=== PATIENT | female | born 1960 ===

== ENCOUNTER 2018-09-25 16:08 | Outpatient (CLI) | payer OTHER ==
--- NOTE | 2018-09-29 09:10 | Mammography Report ---
BILATERAL DIGITAL SCREENING MAMMOGRAM with CAD: 09/25/18 16:08:00 CLINICAL: Routine screening. COMPARISON: None available. FINDINGS: The breasts are almost entirely fatty.No mass, architectural distortion or suspicious calcifications. IMPRESSION: No mammographic evidence of malignancy. BI-RADS CATEGORY: 1 -- Negative RECOMMENDATION: Routine mammographic screening in one year. COMMENT: Patient follow-up letters are generated by our [employer] application.
== END 2018-09-25 16:09 | disposition home or self-care (01) ==
LOC: SPVWC 16:08
PROVIDERS: ATTEND Internal Medicine
DX: Z12.31 Encounter for screening mammogram for malignant neoplasm of breast (principal)
CPT/HCPCS: 77067

== ENCOUNTER 2019-02-23 09:24 | Outpatient (CLI) | payer OTHER ==
[2019-02-23 10:32] LABS: Chol/HDL Ratio 3.94 %
== END 2019-02-23 09:25 | disposition home or self-care (01) ==
LOC: LAB 09:24
PROVIDERS: ATTEND Internal Medicine
DX: E78.2 Mixed hyperlipidemia (principal); R73.03 Prediabetes
CPT/HCPCS: 36415; 80061; 83036

== ENCOUNTER 2019-06-03 10:28 | Outpatient (CLI) | payer OTHER ==
[2019-06-03 12:36] LABS: Basophils % (Auto) 0.7 % (0.0-1.8); Eosinophils # (Auto) 0.2 K/mm3 (0.0-0.4); Eosinophils % (Auto) 3.8 % (0.0-4.3); Hematocrit 41.6 % (30.3-42.9); Lymphocytes # (Auto) 1.7 K/mm3 (1.2-5.4); Mean Corpuscular HGB Conc 34 % (30-34); Mean Corpuscular Volume 91 fl (79-97); Monocytes # (Auto) 0.4 K/mm3 (0.0-0.8); Monocytes % (Auto) 7.5 % (0.0-7.3); Platelet Count 229 K/mm3 (140-440); Red Cell Distribution Width 12.9 % (13.2-15.2)
[2019-06-03 12:38] LABS: Bilirubin,Urine NEG (Negative); Blood,Urine NEG (Negative); Color,Urine Yellow (Yellow); Mucus,Urine FEW /HPF; Protein,Urine <15 mg/dL mg/dL (Negative); Urobilinogen,Urine < 2.0 mg/dL (<2.0)
[2019-06-03 12:45] LABS: WBC,Urine < 1.0 /HPF (0.0-6.0)
[2019-06-03 12:46] LABS: Alanine Aminotransferase 27 units/L (7-56); Albumin 4.4 g/dL (3.9-5); BUN/Creatinine Ratio 28; Blood Urea Nitrogen 11 mg/dL (7-17); Calcium 9.4 mg/dL (8.4-10.2); Chol/HDL Ratio 3.69 %; HDL Cholesterol 55 mg/dL (40-59); Hemolysis Index 6; LDL Cholesterol,Direct 146 mg/dL (50-130)
[2019-06-07 12:09] LABS: Vitamin D, 25-OH, D2 <4 ng/mL
== END 2019-06-03 10:29 | disposition home or self-care (01) ==
LOC: LAB 10:28
PROVIDERS: ATTEND Internal Medicine
DX: Z00.00 Encounter for general adult medical examination without abnormal findings (principal); R73.03 Prediabetes; E78.2 Mixed hyperlipidemia; Z13.29 Encounter for screening for other suspected endocrine disorder; Z13.21 Encounter for screening for nutritional disorder
CPT/HCPCS: 36415; 80053; 80061; 81001; 82306; 82607; 83036; 84443; 85025

== ENCOUNTER 2019-10-01 07:18 | Day surgery (SDC) | payer OTHER ==
[~2019-10-01 07:18] MED LIST: SODIUM CHLORIDE 0.9% 1000 ML 1,000 ML IV SCH
[2019-10-01] MEDS ORDERED: LIDOCAINE MPF (2%) 20 MG/1 ML VIAL 5 ML ONE (08:00)
--- NOTE | 2019-10-01 08:02 | Anesthesia Consultation ---
Anesthesia Consult and Med Hx Date of service: 10/01/19 - Airway Anesthetic Teeth Evaluation: Good ROM Head & Neck: Adequate Mental/Hyoid Distance: Adequate Mallampati Class: Class II Intubation Access Assessment: Probably Good - Pre-Operative Health Status ASA Pre-Surgery Classification: ASA2 Proposed Anesthetic Plan: MAC - Gastrointestinal Hx Ulcer: No (diarrhea) Hx Gastroesophageal Reflux Disease: Yes (disphagea)
--- NOTE | 2019-10-01 08:03 | Anesthesia Day of Surgery ---
Anesthesia Day of Surgery - Day of Surgery Patient Examined: Yes Patient H&P Reviewed: Yes Patient is NPO: Yes
[2019-10-01] MEDS ORDERED: propofoL 200 MG/20 ML VIAL IV ONE ×2 (09:13)
--- NOTE | 2019-10-01 09:51 | Procedure Note ---
Date of procedure: 10/01/19 Pre-op diagnosis: Dyspepsia/ Colon Polyp Screening/ Diarrhea Post-op diagnosis: other (Mild to Moderate Erosive Esophagitis/ R/O Eosinophilc Esophagitis/Gastritis/ R/O Microscopic Colitis/R/O Ileitis/ Minor, Internal Hemorrhoid/ No Colon Polyps or Diverticular disease noted) Procedure: EGD with Biopsy/ Colonoscopy with Biopsy Anesthesia: DARSHAN Surgeon: DWAYNE BARBER Estimated blood loss: minimal Pathology: list Specimen disposition: to lab Condition: stable
--- NOTE | 2019-10-01 09:53 | Operative Report ---
INDICATIONS: This is a 59-year-old female who had colonoscopy done as part of colon polyp screening. She also gave complaints of diarrhea and was being checked for possible associated colitis. The procedure was done after getting informed consent with MAC anesthesia. EGD was done prior to the colonoscopy, which showed moderate erosive esophagitis and gastritis. Biopsy was also done to rule out for eosinophilic esophagitis. Initial rectal exam was unremarkable. Instrument was passed through the rectum onto the cecum, which was identified with ileocecal valve and the appendiceal orifice. Visualization was fair to good. The terminal ileum was intubated showed normal mucosa. Biopsy was done to rule out for possible ileitis. Cecum, ascending colon, transverse colon, descending colon, and sigmoid showed normal mucosa. Biopsy was done to rule out for possible microscopic colitis. There is no colon polyps or diverticular disease noted and the rectum showed minor internal hemorrhoid on the retroverted view. There was minimal bleeding associated with the biopsies and no complications associated with the procedure. ASSESSMENT: Colon polyp screening, diarrhea. No colon polyps or diverticula noted. Rule out microscopic colitis, rule out ileitis, minor internal hemorrhoid. PLAN: To encourage the patient to take [id number] antidiarrheal medication as needed. Encouraged the patient to take otiz-trm-csymzzz probiotics. Avoid aspirin and aspirin-related products. The patient will be treated with PPI and baclofen because of the EGD findings of esophagitis and gastritis and will be asked to follow up in the office in 1-2 weeks' time. Further treatment adjustments will be made according to the biopsy findings. JOB# [id number] JAYASHREE/SÁNCHEZ
[2019-10-01 10:05] VITALS: BP 146/73
--- NOTE | 2019-10-01 10:29 | Operative Report ---
PROCEDURE: EGD with biopsy. INDICATIONS: A 59-year-old female who has been complaining of dyspeptic symptoms. EGD was done to assess for the problem. DESCRIPTION OF PROCEDURE: The procedure was done after getting informed consent with MAC anesthesia. Instrument was passed through the hypopharynx into the esophagus, which showed mild to moderate distal erosive esophagitis. Biopsy was done from the distal esophagus as well as the mid esophagus to assess for the severity of erosive esophagitis and rule out for any associated eosinophilic esophagitis. The stomach showed antral gastritis. Pylorus was patent. Duodenum in the first and second portion appeared normal. Biopsy was done from the gastric antrum, gastric body and angular incisura to rule out for H. pylori and atrophic gastritis. There was minimal bleeding associated with the procedure. No complications associated with the procedure. ASSESSMENT: Dyspepsia, mild to moderate erosive esophagitis, rule out eosinophilic esophagitis and gastritis. PLAN: To treat the patient with PPI and possibly baclofen to help with any acid reflux. Avoid aspirin and aspirin-related products. A colonoscopy will be done as part of colon polyp screening because of the patient's complaints of diarrhea. The patient will be asked to follow up in the office in 1-2 weeks' time. The procedure was done in the GI lab with the assistance of the GI lab team, which included MACIEL Emery, león Choi and with the assistance of Anesthesia. JOB# [id number] JAYASHREE/SÁNCHEZ
--- NOTE | 2019-10-01 12:03 | Post Anesthesia Evaluation ---
- Post Anesthesia Evaluation Patient Participated: Yes Airway Patent: Yes Stable Respiratory Function: Yes Nausea/Vomiting: No Temp > 96.8F: Yes Pain Manageable: Yes Adequeate Hydration: Yes Anesthesia Complications: No
[2019-10-01] MEDS ORDERED: WATER FOR IRRIG STERILE 250 ML BOTTLE IR ONE (12:57)
== END 2019-10-01 10:28 | disposition home or self-care (01) ==
LOC: GIO 07:18
DX: R19.7 Diarrhea, unspecified (principal); R10.13 Epigastric pain; K21.0 Gastro-esophageal reflux disease with esophagitis; K29.70 Gastritis, unspecified, without bleeding; K57.30 Diverticulosis of large intestine without perforation or abscess without bleeding; K62.89 Other specified diseases of anus and rectum; K64.8 Other hemorrhoids; Z88.8 Allergy status to other drugs, medicaments and biological substances; Z79.899 Other long term (current) drug therapy; Z90.49 Acquired absence of other specified parts of digestive tract; Z90.710 Acquired absence of both cervix and uterus; Z98.890 Other specified postprocedural states
CPT/HCPCS: 43239; 45380; 88305; 88312; 88341; 88342; J2704; J7030

== ENCOUNTER 2020-03-17 12:44 | Outpatient (CLI) | payer OTHER ==
--- NOTE | 2020-03-20 10:28 | Mammography Report ---
DIGITAL SCREENING MAMMOGRAM WITH CAD, 03/17/2020 CLINICAL INFORMATION / INDICATION: Routine screening mammography. SCREENING MAMMO TECHNIQUE: Digital bilateral 2D mammography was obtained in the craniocaudal and mediolateral obliqu e projections. This examination was interpreted with the benefit of Computer-Aided Detection analysis . COMPARISON: Prior mammogram 09/25/2018 FINDINGS: Breast Density: There are scattered areas of fibroglandular density. No dominant mass, suspicious calcifications, or architectural distortion in either breast. There has been no significant change compared with the prior examination. IMPRESSION: No mammographic evidence of malignancy. Follow up recommendation: Routine yearly BI-RADS Category 1: Negative. A "normal" or negative report should not discourage follow up or biopsy of a clinically significant f inding. A written summary of these findings will be mailed to the patient. The patient will be entered into a mammography reporting system which will generate a reminder letter for the patient's next appointmen t at the appropriate interval. The [employer] recommends yearly mammograms starting at age 40 and continuing as l emerita as a woman is in good health. Breast MRI is recommended for women with an approximate 20-25% or greater lifetime risk of breast cancer, including women with a strong family history of breast or ova purnima cancer or who have been treated for Hodgkin's disease. Signer Name: Glenis Stuart MD Signed: 03/20/2020 10:24 AM Workstation Name: [email or web address]
== END 2020-03-17 12:45 | disposition home or self-care (01) ==
LOC: SPVWC 12:44
PROVIDERS: ATTEND Internal Medicine
DX: Z12.31 Encounter for screening mammogram for malignant neoplasm of breast (principal)
CPT/HCPCS: 77067

== ENCOUNTER 2021-06-26 09:13 | Outpatient (CLI) | payer OTHER ==
--- NOTE | 2021-06-27 10:08 | Mammography Report ---
DIGITAL SCREENING MAMMOGRAM WITH CAD, 06/26/2021 CLINICAL INFORMATION / INDICATION: Routine screening mammography. TECHNIQUE: Digital bilateral 2D mammography was obtained in the craniocaudal and mediolateral obliqu e projections. This examination was interpreted with the benefit of Computer-Aided Detection analysis . COMPARISON: 03/17/2020, 09/25/2018 FINDINGS: Breast Density: There are scattered areas of fibroglandular density. No dominant mass, suspicious calcifications, or architectural distortion in either breast. No interval change. IMPRESSION: No mammographic evidence of malignancy. Follow up recommendation: Routine yearly BI-RADS Category 1: NEGATIVE A "normal" or negative report should not discourage follow up or biopsy of a clinically significant f inding. A written summary of these findings will be mailed to the patient. The patient will be entered into a mammography reporting system which will generate a reminder letter for the patient's next appointmen t at the appropriate interval. The [employer] recommends yearly mammograms starting at age 40 and continuing as l emerita as a woman is in good health. Breast MRI is recommended for women with an approximate 20-25% or greater lifetime risk of breast cancer, including women with a strong family history of breast or ova purnima cancer or who have been treated for Hodgkin's disease. Signer Name: Bella Pittman MD Signed: 06/27/2021 10:04 AM Workstation Name: [id number]
== END 2021-06-26 09:14 | disposition home or self-care (01) ==
LOC: SPVWC 09:13
PROVIDERS: ATTEND Internal Medicine
DX: Z12.31 Encounter for screening mammogram for malignant neoplasm of breast (principal)
CPT/HCPCS: 77067

== ENCOUNTER 2021-11-21 10:52 | Outpatient (CLI) | payer OTHER ==
[2021-11-21 12:29] LABS: Basophils % (Auto) 0.7 % (0.0-1.8); Eosinophils # (Auto) 0.3 K/mm3 (0.0-0.4); Hematocrit 41.6 % (30.3-42.9); Hemoglobin 13.8 gm/dl (10.1-14.3); Lymphocytes # (Auto) 1.9 K/mm3 (1.2-5.4); Lymphocytes % (Auto) 39.4 % (13.4-35.0); Mean Corpuscular HGB Conc 33 % (30-34); Mean Corpuscular Volume 90 fl (79-97); Monocytes # (Auto) 0.4 K/mm3 (0.0-0.8); Monocytes % (Auto) 7.3 % (0.0-7.3); Platelet Count 243 K/mm3 (140-440); Red Blood Count 4.64 M/mm3 (3.65-5.03); Red Cell Distribution Width 13.7 % (13.2-15.2)
[2021-11-21 12:57] LABS: Mucus,Urine FEW /HPF; WBC,Urine < 1.0 /HPF (0.0-6.0)
[2021-11-21 13:15] LABS: Color,Urine Yellow (Yellow)
[2021-11-21 13:17] LABS: Bilirubin,Urine Negative (Negative); Blood,Urine Trace (Negative); PH,Urine 6.5 (5.0-7.0); Protein,Urine <15 mg/dL mg/dL (Negative); Urobilinogen,Urine < 2.0 mg/dL (<2.0)
[2021-11-21 14:25] LABS: Alanine Aminotransferase 18 units/L (7-56); Albumin 4.4 g/dL (3.9-5); Blood Urea Nitrogen 8 mg/dL (7-17); Calcium 9.2 mg/dL (8.4-10.2); Chol/HDL Ratio 3.94 %; HDL Cholesterol 53 mg/dL (40-59); Hemolysis Index 16; LDL Cholesterol,Direct 139 mg/dL (50-130)
[2021-11-21 14:26] LABS: BUN/Creatinine Ratio 16
== END 2021-11-21 10:53 | disposition home or self-care (01) ==
LOC: LABHHL 10:52
PROVIDERS: ATTEND Internal Medicine
DX: Z00.00 Encounter for general adult medical examination without abnormal findings (principal); E78.2 Mixed hyperlipidemia; R73.03 Prediabetes; R53.83 Other fatigue; E55.9 Vitamin D deficiency, unspecified; N39.0 Urinary tract infection, site not specified
CPT/HCPCS: 36415; 80053; 80061; 81001; 82306; 83036; 84443; 85025